=== PATIENT | male | born 1990 | race American Indian/Alaskan Native ===

== ENCOUNTER 2017-05-09 21:57 | Emergency (ER) | payer OTHER ==
[2017-05-09 22:29] VITALS: BP 130/84
--- NOTE | 2017-05-10 00:48 | XRay Report ---
FINAL REPORT EXAM: XR FOOT 2V RT HISTORY: right foot lesion COMPARISON: None available. FINDINGS: Two views of right foot obtained. There is ossicle adjacent to the cuboid. Bony structures are intact. Joint spaces are preserved. No acute fracture dislocation. IMPRESSION: No acute bony abnormality.
--- NOTE | 2017-05-10 03:08 | Emergency Department Report ---
ED Lower Extremity HPI - General Chief Complaint: Extremity Injury, Lower Stated Complaint: FOOT PAIN Time Seen by Provider: 05/10/17 02:21 Source: patient, family Mode of arrival: Ambulatory Limitations: No Limitations - History of Present Illness Initial Comments: 27YO MALE WITH RIGHT FOOT PAIN FOR 1 WEEK, PAINFUL TO WALK,NO INJURY,NO HISTORY OF GOUT MD Complaint: other (NO INJURY) -: Gradual, week(s) (1) Injury: Foot: Right ( JOINT) Type of Injury: other (PAIN AT MTP) Place: home Severity: moderate Severity scale (0 -10): 6 Worsens With: weight bearing, movement Context: other (IMPROPER SHOES) Associated Symptoms: swelling, ambulatory. denies: numbness, tingling - Related Data Previous Rx's Medication Instructions Recorded Last Taken Type Mupirocin [Bactroban 2% OINT] 0.5 gram INNOSTRIL BID #1 tube 03/29/14 Unknown Rx Sulfamethoxazole/Trimethoprim 1 each PO BID #14 tablet 03/29/14 Unknown Rx [Bactrim Ds] Ibuprofen [Motrin] 800 mg PO Q8HR PRN #30 tablet 05/10/17 Unknown Rx Allergies Allergy/AdvReac Type Severity Reaction Status Date / Time No Known Allergies Allergy Unverified 03/29/14 15:34 ED Review of Systems ROS: Stated complaint: R FOOT INJURY Other details as noted in HPI Constitutional: denies: chills, fever Eyes: denies: eye pain, eye discharge, vision change ENT: denies: ear pain, throat pain Respiratory: denies: cough, shortness of breath, wheezing Cardiovascular: denies: chest pain, palpitations Endocrine: no symptoms reported Gastrointestinal: denies: abdominal pain, nausea, diarrhea Genitourinary: denies: urgency, dysuria Musculoskeletal: denies: back pain, joint swelling, arthralgia Skin: denies: rash, lesions Neurological: denies: headache, weakness, paresthesias Psychiatric: denies: anxiety, depression Hematological/Lymphatic: denies: easy bleeding, easy bruising ED Past Medical Hx - Past Medical History Previous Medical History?: Yes Hx Congestive Heart Failure: No Hx Diabetes: No Hx GERD: No Hx Liver Disease: No Hx Renal Disease: No Hx of Cancer: No Hx Sickle Cell Disease: No Hx Arthritis: No Additional medical history: staph infection, skin - Surgical History Past Surgical History?: No - Family History Family history: hypertension - Social History Smoking Status: Current Every Day Smoker Substance Use Type: None - Medications Home Medications: Home Medications Medication Instructions Recorded Confirmed Last Taken Type Mupirocin [Bactroban 2% OINT] 0.5 gram INNOSTRIL BID #1 tube 03/29/14 Unknown Rx Sulfamethoxazole/Trimethoprim 1 each PO BID #14 tablet 03/29/14 Unknown Rx [Bactrim Ds] Ibuprofen [Motrin] 800 mg PO Q8HR PRN #30 tablet 05/10/17 Unknown Rx ED Physical Exam - General Limitations: No Limitations General appearance: alert, in no apparent distress - Head Head exam: Present: atraumatic, normocephalic - Eye Eye exam: Present: normal appearance - ENT ENT exam: Present: mucous membranes moist - Neck Neck exam: Present: normal inspection - Respiratory Respiratory exam: Present: normal lung sounds bilaterally. Absent: respiratory distress - Cardiovascular Cardiovascular Exam: Present: regular rate, normal rhythm. Absent: systolic murmur, diastolic murmur, rubs, gallop - GI/Abdominal GI/Abdominal exam: Present: soft, normal bowel sounds - Rectal Rectal exam: Present: deferred - Extremities Exam Extremities exam: Present: normal inspection - Expanded Lower Extremity Exam Right Foot/Toe exam: Present: full ROM, tenderness, swelling (OVER MTP JOIN OF GREAT TOE) - Back Exam Back exam: Present: normal inspection - Neurological Exam Neurological exam: Present: alert, oriented X3 - Psychiatric Psychiatric exam: Present: normal affect, normal mood - Skin Skin exam: Present: warm, dry, intact, normal color. Absent: rash ED Course Vital Signs 05/09/17 22:27 Temperature 98.6 F Pulse Rate 72 Respiratory 18 Rate Blood Pressure 130/84 O2 Sat by Pulse 98 Oximetry Critical care attestation.: If time is entered above; I have spent that time in minutes in the direct care of this critically ill patient, excluding procedure time. ED Disposition Clinical Impression: Callus of bone, Foot pain Disposition: DC- TO HOME OR SELFCARE Is pt being admited?: No Does the pt Need Aspirin: No Condition: Stable Prescriptions: Ibuprofen [Motrin] 800 mg PO Q8HR PRN #30 tablet PRN Reason: Pain Referrals: ALMA ROSA HOLLOWAY MD [Primary Care Provider] - 3-5 Days LORETA KUO MD [Referring] - 3-5 Days GUILLERMO DORAN MD [Referring] - 3-5 Days NGA ALMARAZ MD [Referring] - 3-5 Days EAMON MARMOLEJO MD [Referring] - 3-5 Days Time of Disposition: 03:11
== END 2017-05-10 03:25 | disposition home or self-care (01) ==
LOC: ED 21:57
DX: M25.774 Osteophyte, right foot (principal); F17.200 Nicotine dependence, unspecified, uncomplicated
CPT/HCPCS: 99283